=== PATIENT | male | born 1955 | race Caucasian/White ===

== ENCOUNTER 2021-11-02 11:46 | Emergency (ER) | payer MEDICARE, BC ==
[2021-11-02] MEDS ORDERED: Sodium Chloride 0.9% 10 ML Syringe FLUSH PRN (13:23)
[2021-11-02 14:00] LABS: TROPONIN I HIGH SENSITIVITY 6.7 pg/mL (<=60.3)
[2021-11-02] MEDS ORDERED: Iopamidol 612 MG/ML 100 ML Bottle IV PRN (15:29)
[2021-11-02] MEDS ORDERED: Sodium Chloride 0.9% 100 ML IV SCH (15:30)
[2021-11-02] MEDS ORDERED: Famotidine 20 MG/2 ML SDV IVPUSH ONE (16:32)
[2021-11-02] MEDS ORDERED: Ondansetron 4 MG/2 ML SDV IVPUSH PRN (16:32)
[2021-11-02] MEDS: Morphine 4 MG/ML Syringe IVPUSH PRN ×2 (17:00→21:28)
== END 2021-11-02 21:44 ==
LOC: JP.ED 11:46
DX: K56.699 Other intestinal obstruction unspecified as to partial versus complete obstruction (principal); I10 Essential (primary) hypertension; C78.7 Secondary malignant neoplasm of liver and intrahepatic bile duct; E78.00 Pure hypercholesterolemia, unspecified; Z79.899 Other long term (current) drug therapy; Z20.822 Contact with and (suspected) exposure to COVID-19
CPT/HCPCS: 36415; 71045; 74177; 76705; 80048; 80076; 82150; 83605; 83690; 83735; 84484; 85025; 86140; 93005; 93010; 96374; 96375; 99285; J2270; J3490; Q9967; U0002